=== PATIENT | female | born 1950 | race Caucasian/White ===

== ENCOUNTER 2017-03-03 21:33 | Observation (INO) | payer BC ==
[~2017-03-03 21:33] MED LIST: ADULT LOW DOSE81 M1 PO; ATENOLOL PO; IRON PO; LEXAPRO10 M2 PO; MELATONIN10 M6 PO; METFORMIN HCL500 M2 PO; MULTIVITAMINS1 EAC6 PO; TENORMIN25 M1 PO; VITAMIN D
[2017-03-03 22:55] LABS: BASO % 0.2 % (0-2); EOSINOPHIL ABSOLUTE COUNT 0.2 tho/cmm (0.0-0.7); HCT-HEMATOCRIT 39.8 % (34.0-49.0); HGB-HEMOGLOBIN 13.2 gm/dl (12.0-15.5); IMMATURE GRANULOCYTES ABSOLUTE 0.02 tho/cmm (0-0.03); IMMATURE GRANULOCYTES PERCENT 0.2 % (0-0.3); LYMPH % 43.8 % (20-45); LYMPH ABSOLUTE COUNT 3.7 tho/cmm (0.8-4.5); MCH (MEAN CORPUSCULAR HGB) 31.6 pg (28.0-32.0); MCHC MEAN CORPUSCULAR HGB CONC 33.2 % (32.0-36.0); MCV (MEAN CELL VOLUME) 95.2 fl (82.0-96.0); MEAN PLATELET VOLUME 10.8 cmc (9.4-12.4); MONO % 6.5 % (0-12); MONOCYTE ABSOLUTE COUNT 0.6 tho/cmm (0.0-1.2); NEUTROPHILS % 47.3 % (40-80); PLATELET COUNT 234 tho/cmm (150-450); RED BLOOD COUNT 4.18 mil/cmm (4.00-5.20); RED CELL DISTRIBUTION WIDTH 12.2 % (12.4-16.4); URINE BILIRUBIN NEGATIVE (NEG); URINE BLOOD SMALL (NEG); URINE GLUCOSE (UA) NEGATIVE (NEG); URINE KETONE NEGATIVE (NEG); URINE LEUKOCYTE ESTERASE POSITIVE (NEG); URINE NITRITE POSITIVE (NEG); URINE PROTEIN NEGATIVE (NEG); URINE SPECIFIC GRAVITY 1.015 (1.003-1.030); WHITE BLOOD COUNT 8.5 tho/cmm (4.0-10.0)
[2017-03-03 22:57] LABS: URINE APPEARANCE HAZY; URINE COLOR YELLOW
[2017-03-03 23:03] LABS: INR 0.9 INR (0.9-1.1); PROTHROMBIN TIME 10.7 SECONDS (9.0-13.6); URINE BACTERIA 3+; URINE WBC 15-20 /[HPF] (0-5)
[2017-03-03 23:15] LABS: ESR-ERYTHROCYTE SED RATE 11 mm/hr (0-30)
[2017-03-03 23:16] LABS: ALB/GLOB RATIO 1.1 (0.8-2.0); ALBUMIN 3.7 g/dl (3.5-5.0); ALKALINE PHOSPHATASE 137 U/L (33-138); ALT/SGPT 39 U/L (12-78); ANION GAP 11 mmol/L (0-20); AST/SGOT 33 U/L (10-40); BILIRUBIN,TOTAL 0.3 mg/dl (0-1.5); BLOOD UREA NITROGEN 18 mg/dl (6-24); CALCIUM 8.7 mg/dl (8.5-10.5); CARBON DIOXIDE-VENOUS 29 mmol/L (22-32); CHLORIDE 107 mmol/l (96-110); CREATININE 1.07 mg/dl (0.50-1.10); GLUCOSE 113 mg/dL (70-110); MAGNESIUM 1.7 mg/dl (1.8-2.6); POTASSIUM 3.9 mmol/L (3.7-5.1); SODIUM 143 mmol/L (135-145); eGFR VALUE FOR BLACK 64 mL/Min
[2017-03-04 07:28] LABS: BASO % 0.4 % (0-2); EOS % 2.3 % (0-7); EOSINOPHIL ABSOLUTE COUNT 0.1 tho/cmm (0.0-0.7); HCT-HEMATOCRIT 35.7 % (34.0-49.0); HGB-HEMOGLOBIN 11.8 gm/dl (12.0-15.5); IMMATURE GRANULOCYTES ABSOLUTE 0.01 tho/cmm (0-0.03); IMMATURE GRANULOCYTES PERCENT 0.2 % (0-0.3); LYMPH % 43.3 % (20-45); LYMPH ABSOLUTE COUNT 2.4 tho/cmm (0.8-4.5); MCH (MEAN CORPUSCULAR HGB) 31.2 pg (28.0-32.0); MCHC MEAN CORPUSCULAR HGB CONC 33.1 % (32.0-36.0); MCV (MEAN CELL VOLUME) 94.4 fl (82.0-96.0); MEAN PLATELET VOLUME 11.1 cmc (9.4-12.4); MONO % 7.9 % (0-12); MONOCYTE ABSOLUTE COUNT 0.4 tho/cmm (0.0-1.2); NEUTROPHIL ABSOLUTE COUNT 2.6 tho/cmm (1.6-8.0); NEUTROPHIL-AUTOMATED 2.6 tho/cmm (1.6-8.0); NEUTROPHILS % 45.9 % (40-80); PLATELET COUNT 213 tho/cmm (150-450); RED BLOOD COUNT 3.78 mil/cmm (4.00-5.20); RED CELL DISTRIBUTION WIDTH 12.2 % (12.4-16.4); WHITE BLOOD COUNT 5.6 tho/cmm (4.0-10.0)
[2017-03-04 08:05] LABS: ESR-ERYTHROCYTE SED RATE 9 mm/hr (0-30)
[2017-03-04 10:15] LABS: ANION GAP 11 mmol/L (0-20); BLOOD UREA NITROGEN 14 mg/dl (6-24); CARBON DIOXIDE-VENOUS 26 mmol/L (22-32); CHLORIDE 112 mmol/l (96-110); CHOLESTEROL 148 mg/dl (120-200); CREATININE 0.93 mg/dl (0.50-1.10); GLUCOSE 97 mg/dL (70-110); HDL CHOLESTEROL 56 mg/dl (40-60); LDL CHOLESTEROL 78 mg/dl (0-99); POTASSIUM 4.2 mmol/L (3.7-5.1); SODIUM 145 mmol/L (135-145); TRIGLYCERIDES 70 mg/dl (<149); VLDL 14 mg/dl (0-30); eGFR VALUE FOR BLACK 75 mL/Min
[2017-03-04 10:16] LABS: C-REACTIVE PROTEIN <0.3 mg/dl (0-0.9)
[2017-03-04 10:48] LABS: PROCALCITONIN <0.05 ng/ml (0.05-0.09)
[2017-03-05] MEDS ORDERED: PLAVIX75 M1 PO (11:06)
[2017-03-05] MEDS ORDERED: LIPITOR20 M1 PO (11:08)
[2017-03-05] MEDS ORDERED: CIPRO250 M2 PO (11:09)
== END 2017-03-05 13:00 ==
LOC: EDMED 21:33 → EMR2 03-04 01:24 → 5EC 03-04 02:17
PROVIDERS: Emergency Medicine; Registered Nurse; ADMIT Hospitalist
DX: I63.9 Cerebral infarction, unspecified (principal); I67.82 Cerebral ischemia; E11.9 Type 2 diabetes mellitus without complications; E78.5 Hyperlipidemia, unspecified; I10 Essential (primary) hypertension; R26.9 Unspecified abnormalities of gait and mobility; N39.0 Urinary tract infection, site not specified; I25.10 Atherosclerotic heart disease of native coronary artery without angina pectoris; Z79.82 Long term (current) use of aspirin; Z79.84 Long term (current) use of oral hypoglycemic drugs; Z79.899 Other long term (current) drug therapy; Z91.040 Latex allergy status; Z86.73 Personal history of transient ischemic attack (TIA), and cerebral infarction without residual deficits; Z90.49 Acquired absence of other specified parts of digestive tract; Z90.89 Acquired absence of other organs; Z98.84 Bariatric surgery status; Z95.5 Presence of coronary angioplasty implant and graft; Z98.51 Tubal ligation status; Z98.890 Other specified postprocedural states
CPT/HCPCS: A9577; C8929; G0378; G8987-GO-CI; G8988-GO-CH; G8989-GO-CI; J0696; J1650; J1815; J2405; J7030